=== PATIENT | male | born 1985 | race African-American/Black ===

== ENCOUNTER 2016-11-04 21:41 | Emergency (ER) | payer OTHER ==
[~2016-11-04] VITALS: Ht 182.9 cm; Wt 74.8 kg
--- NOTE | ~2016-11-04 | EKG ---
[address] [address] ELECTROCARDIOGRAM REPORT Name: JUAN JOSÉ SIDDIQUI Room #: [id number] Admission: 11/04/16 Attend Phys: Discharge: 11/04/16 Date of : 83 Report #: [id number] THIS REPORT FOR: //name// [facility] ED Test Date: 2016-11-04 Test Time: 21:54:18 Pat Name: JUAN JOSÉ SIDDIQUI Department: Room: Gender: M Machine Presser: SUMAN : 1985 Requested By: Patito Patel Order Number: [id number] MD: Gene Yanes Measurements Intervals [place] Rate: 87 P: 46 [place]: 156 QRS: 23 QRSD: 89 T: 32 QT: 351 QTc: 423 Interpretive Statements Sinus rhythm Normal tracing No previous ECG available for comparison Electronically Signed On 11-05-2016 9:06:38 [employer] by Gene Yanes [email or web address] <ELECTRONICALLY SIGNED> By: Gene Yanes MD, [facility] 11/05/16 [id number] Gene Yanes MD, FACC /EPI
[~2016-11-04 21:41] MED LIST: NAPROSYN500 MG PO; NORFLEX100 MG PO
[2016-11-04 21:42] VITALS: BP 145/106
[2016-11-04 22:13] LABS: HEMATOCRIT 44.7 % (42.0-52.0); HEMOGLOBIN 15.2 gm/dL (14.0-18.0); MCH 30.6 pg (26.0-34.0); MCHC 33.9 % (28.0-37.0); MCV 90.2 fL (80.0-100.0); PLATELET COUNT 254 thou/uL (150-400); RBC 4.96 mil/uL (4.50-6.00); RDW 12.8 % (10.5-14.5)
[2016-11-04 22:14] LABS: MANUAL DIFF YES
[2016-11-04 22:34] LABS: ANION GAP 8 mmol/L (7-16); BUN 13 mg/dL (7-18); CALCIUM 8.7 mg/dL (8.5-10.1); CHLORIDE 103 mmol/L (98-107); CO2 27 mmol/L (21-32); CREATININE 1.2 mg/dL (0.6-1.3); GLUCOSE 97 mg/dL (70-99); POTASSIUM 4.1 mmol/L (3.5-5.1); SODIUM 138 mmol/L (136-145)
[2016-11-04 22:40] LABS: ABSOLUTE NEUTROPHILS 3.5 thou/uL (1.4-8.2); ANISOCYTOSIS 1+; TOTAL CELL COUNT 100
[2016-11-04 22:41] LABS: POLYCHROMASIA OCCASIONAL
[2016-11-04 22:46] LABS: ALBUMIN 4.3 g/dL (3.4-5.0); ALKALINE PHOSPHATASE 105 U/L (46-116); MAGNESIUM 2.2 mg/dL (1.8-2.4); SGOT 42 U/L (15-37); SGPT 43 U/L (30-65); TOTAL BILIRUBIN 0.2 mg/dL (<0.1-1.0); TOTAL PROTEIN 8.3 g/dL (6.4-8.2); TROPONIN-I < 0.04 ng/mL (<0.04-0.07)
[2016-12-05] MEDS ORDERED: KEFLEX500 M1 PO (04:07)
== END 2016-11-04 23:35 | disposition home or self-care (01) ==
LOC: ER 21:41
PROVIDERS: Emergency Medicine
DX: M62.82 Rhabdomyolysis (principal); F19.10 Other psychoactive substance abuse, uncomplicated; F17.210 Nicotine dependence, cigarettes, uncomplicated

== ENCOUNTER 2017-06-16 19:56 | Emergency (ER) | payer OTHER ==
[~2017-06-16] VITALS: Ht 182.9 cm; Wt 106.6 kg
[~2017-06-16 19:56] MED LIST changes: +KEFLEX500 M1 PO
[2017-06-16] MEDS ORDERED: METFORMIN HCL500 MG PO (20:06)
[2017-06-16 20:42] LABS: URINE BILIRUBIN NEGATIVE (Negative); URINE BLOOD NEGATIVE (Negative); URINE COLOR YELLOW; URINE GLUCOSE-RANDOM* NEGATIVE (Negative); URINE KETONES TRACE (Negative); URINE NITRITE NEGATIVE (Negative); URINE PROTEIN (DIPSTICK) NEGATIVE (Negative); URINE SPECIFIC GRAVITY 1.025 (1.003-1.035)
[2017-06-16 20:42] LABS: HEMATOCRIT 40.1 % (42.0-52.0); HEMOGLOBIN 13.8 gm/dL (14.0-18.0); MANUAL DIFF YES; MCH 29.6 pg (26.0-34.0); MCHC 34.3 g/dL (28.0-37.0); MCV 86.3 fL (80.0-100.0); PLATELET COUNT 285 thou/uL (150-400); RBC 4.65 mil/uL (4.50-6.00); RDW 13.6 % (10.5-14.5); WBC 6.6 thou/uL (4.0-11.0)
[2017-06-16 20:46] LABS: ANION GAP 9 mmol/L (7-16); BUN 13 mg/dL (7-18); CALCIUM 9.3 mg/dL (8.5-10.1); CHLORIDE 104 mmol/L (98-107); CO2 26 mmol/L (21-32); CREATININE 1.1 mg/dL (0.7-1.3); GLUCOSE 114 mg/dL (74-106); POTASSIUM 3.9 mmol/L (3.5-5.1); SODIUM 139 mmol/L (136-145)
[2017-06-16 20:51] LABS: ALBUMIN 3.8 g/dL (3.4-5.0); ALKALINE PHOSPHATASE 113 U/L (46-116); SGOT 32 U/L (15-37); SGPT 63 U/L (30-65); TOTAL BILIRUBIN 0.2 mg/dL (<0.1-1.0); TOTAL PROTEIN 7.8 g/dL (6.4-8.2)
[2017-06-16 21:00] LABS: DIRECT BILIRUBIN < 0.1 mg/dL (<0.1-0.3)
[2017-06-16 21:29] LABS: ABSOLUTE NEUTROPHILS 3.6 thou/uL (1.4-8.2); ANISOCYTOSIS 1+; TOTAL CELL COUNT 100
[2017-06-16 21:30] LABS: POLYCHROMASIA 1+
[2017-06-16] MEDS ORDERED: ZOFRAN ODT4 MG PO (21:42)
[2017-06-16 22:10] VITALS: BP 140/78
== END 2017-06-16 21:57 | disposition home or self-care (01) ==
LOC: ER 19:56
PROVIDERS: Emergency Medicine
DX: E11.9 Type 2 diabetes mellitus without complications (principal); R11.2 Nausea with vomiting, unspecified; F17.210 Nicotine dependence, cigarettes, uncomplicated

== ENCOUNTER 2019-02-10 17:12 | Emergency (ER) | payer OTHER ==
[~2019-02-10] VITALS: Ht 182.9 cm; Wt 88.5 kg
[~2019-02-10 17:12] MED LIST changes: +IBUPROFEN 600600 M1 PO; +METFORMIN HCL500 MG PO; +PENICILLIN V P500 MG PO; +ZOFRAN ODT4 MG PO
[2019-02-10] MEDS ORDERED: NAPROSYN500 MG PO (19:16)
[2019-02-10] MEDS ORDERED: AUGMENTIN 875-1 EACH PO (19:16)
[2019-02-10 19:33] VITALS: BP 154/74
== END 2019-02-10 19:30 | disposition home or self-care (01) ==
LOC: ER 17:12
DX: S81.032A Puncture wound without foreign body, left knee, initial encounter (principal); Z87.891 Personal history of nicotine dependence; W54.0XXA Bitten by dog, initial encounter; Y92.89 Other specified places as the place of occurrence of the external cause; Y93.89 Activity, other specified; Y99.8 Other external cause status

== ENCOUNTER 2019-04-12 11:03 | Emergency (ER) | payer OTHER ==
[~2019-04-12] VITALS: Ht 182.9 cm; Wt 81.7 kg
[~2019-04-12 11:03] MED LIST changes: +AUGMENTIN 875-1 EACH PO
[2019-04-12 11:04] VITALS: BP 101/77
== END 2019-04-12 11:31 | disposition left against medical advice (07) ==
LOC: ER 11:03
DX: T43.641A Poisoning by ecstasy, accidental (unintentional), initial encounter (principal); Z87.891 Personal history of nicotine dependence; Y92.89 Other specified places as the place of occurrence of the external cause

== ENCOUNTER 2019-04-20 20:59 | Emergency (ER) | payer OTHER ==
[~2019-04-20] VITALS: Ht 182.9 cm; Wt 81.7 kg
[2019-04-20 21:07] VITALS: BP 160/82
[2019-04-20 21:08] LABS: URINE BILIRUBIN NEGATIVE (Negative); URINE BLOOD NEGATIVE (Negative); URINE CLARITY CLEAR; URINE COLOR YELLOW; URINE GLUCOSE-RANDOM* NEGATIVE (Negative); URINE KETONES NEGATIVE (Negative); URINE LEUKOCYTES-REFLEX TRACE (Negative); URINE NITRITE-REFLEX NEGATIVE (Negative); URINE PROTEIN (DIPSTICK) NEGATIVE (Negative)
== END 2019-04-20 21:33 | disposition home or self-care (01) ==
LOC: ER 20:59
PROVIDERS: Emergency Medicine
DX: N34.2 Other urethritis (principal); Z87.891 Personal history of nicotine dependence

== ENCOUNTER 2019-04-28 11:05 | Emergency (ER) | payer OTHER ==
[~2019-04-28] VITALS: Ht 182.9 cm; Wt 81.7 kg
[2019-04-28 11:13] VITALS: BP 134/76
[2019-04-28] MEDS ORDERED: TYLENOL EXTRA500 MG PO (11:55)
== END 2019-04-28 11:50 | disposition home or self-care (01) ==
LOC: ER 11:05
DX: S40.021A Contusion of right upper arm, initial encounter (principal); E11.9 Type 2 diabetes mellitus without complications; Z87.891 Personal history of nicotine dependence; Y08.89XA Assault by other specified means, initial encounter; Y93.89 Activity, other specified; Y92.89 Other specified places as the place of occurrence of the external cause; Y99.8 Other external cause status